=== PATIENT | male | born 1995 | race Caucasian/White ===

== ENCOUNTER 2017-05-01 02:49 | Emergency (ER) | payer SELFPAY ==
[~2017-05-01] VITALS: Ht 180.3 cm; Wt 65.3 kg
[2017-05-01 02:49] VITALS: BP_SYST 128
[2017-05-01 03:24] VITALS: BP_SYST 122
== END 2017-05-01 03:24 ==
LOC: SED 02:49
DX: S80.211A Abrasion, right knee, initial encounter (principal); S80.212A Abrasion, left knee, initial encounter; Y04.2XXA Assault by strike against or bumped into by another person, initial encounter; Y93.9 Activity, unspecified; Y92.89 Other specified places as the place of occurrence of the external cause; Y99.8 Other external cause status
CPT/HCPCS: 99283